=== PATIENT | male | born 1955 | race Caucasian/White ===

== ENCOUNTER 2021-11-03 13:43 | Observation (INO) | payer MEDICARE, MEDICAID, SELFPAY ==
--- NOTE | 2021-11-03 | ECG_ITS ---
APPROVED REPORT Exam: Resting ECG HR:57 bpm ECG Measurements Heart Rate 57 AXES WV 158 P 53 QRSd 95 QRS -21 QT 370 T 47 QTc 363 Conclusion SINUS BRADYCARDIA BORDERLINE LEFT AXIS DEVIATION [QRS AXIS < -20] BORDERLINE ECG UNCONFIRMED REPORT Electronically signed by : Robb Alexandra MD 11/07/2021 16:12:30
[2021-11-03 13:48] VITALS: PULSE 52; O2SAT 98; BMI 28.8
--- NOTE | 2021-11-03 14:36 | XR_ITS ---
FINAL REPORT CLINICAL HISTORY: chest pain, covid, smoker FINDINGS: Two views of the chest were obtained. The heart size and pulmonary vascularity are within normal limits. The mediastinum is normal. There is mild scarring in the lung bases. There is no active disease. There is no pneumothorax. There is a chronic mild right clavicular fracture. IMPRESSION: No active cardiopulmonary disease. Reviewed, Interpreted and Dictated by Erik Flores III, MD Transcribed by Tamie So Authenticated by Erik Flores III, MD on 11/03/2021 04:39:03 PM [facility]
--- NOTE | 2021-11-03 14:45 | HMH.CNCARD ---
History of Present Illness Consult date: 11/03/21 Requesting physician: Von Bateman Chief complaint: palpitations and left arm numbness History of present illness: This is a 66-year-old white gentleman who presented to the emergency department at [facility] with complaints of left arm numbness and palpitations. The patient states that he woke up this morning and his entire left arm was numb. He states then his heart started racing. He states that when his heart started racing he became significantly short of breath. He denies any chest pain or pressure. He states that the left arm numbness and palpitations were also associated with nausea and diaphoresis. He states that he felt like his heart rate was high and he did not feel well so he went to the emergency department. The patient was found to be in atrial fibrillation with RVR. He was started on a diltiazem drip. During transport from [facility] here at [facility], the patient converted to sinus rhythm with a heart rate in the 50s. His diltiazem drip has been stopped. He remains in sinus rhythm at this time. He is still denying any chest pain or pressure. He is still complaining of some left arm numbness. The patient does report a history of coronary artery disease status post stenting. He follows with Dr. Colmenares on a regular basis. And he is currently on Plavix and aspirin. He is a very poor historian and is unable to give me much more of his past medical history other than he has coronary disease, hypertension, hyperlipidemia and is diabetic. He does report having a history of stroke as well and an [place] in the past. [facility] History I have reviewed the patient's past medical history: Yes Medical History: Reports:: Atherosclerotic Heart Disease, Coronary Artery Disease, Cerebrovascular Accident, Diabetes Mellitus Type 2, Hyperlipidemia, Hypertension, Myocardial Infarction *Have you ever received a pneumonia vaccine?: No *Have you received a flu vaccine this season?: No Other Surgeries: Yes: Cardiac Catheterization, Coronary Stent - *Social History Last grade of school completed: 7th or 8th Smoking Status: Former smoker Tobacco Type: cigarettes Alcohol Intake: former *Occupational Status:: retired, disabled *Travel in the last 8 weeks: None Family Hx:: Cancer, Coronary Artery Disease, Diabetes, Heart Attack, Hypertension, Stroke Exam I & O for Last 24 hours: Intake & Output 10/31/21 11/01/21 11/02/21 11/03/21 23:59 23:59 23:59 23:59 Weight 189 lb 9.561 oz Narrative: EKG is sinus bradycardia - Constitutional no acute distress, average body habitus - *Routine HEENT Exam Head: Present: normocephalic, atraumatic Eye: Present: EOMI, PERRL ENT: Present: mucous membranes moist - *Routine Neck Exam Present: supple, full ROM, normal carotid upstroke. Absent: JVD, carotid bruit, lymphadenopathy - *Routine Respiratory Exam Present: CTA bilaterally - *Routine Cardiovascular Exam Present: RRR, Normal S1, Normal S2. Absent: murmur - *Routine Abdominal Exam Present: soft, normoactive bowel sounds. Absent: tenderness, distended - *Routine Extremities Exam Present: full ROM, pulses intact, normal capillary refill. Absent: cyanosis, clubbing, edema - *Routine Skin Exam Present: intact, warm. Absent: erythema, rash - *Routine Neurological Exam Present: alert, oriented X3, CN II-XII intact. Absent: sensory deficit, motor deficit - Routine Psychiatric Exam Present: normal affect, normal thought process Review of Systems - Review of Systems Review of systems:: pertinent systems reviewed and negative unless documented below - Constitutional Reports lack of energy - *Cardiovascular Reports shortness of breath, Reports shortness of breath with activity, Reports rapid, pounding, or irregular heartbeat, Reports fast heart rate, Denies chest pain - *Respiratory Reports shortness of breath, Reports shortness of breath
--- NOTE | 2021-11-03 14:56 | CA_ITS ---
APPROVED REPORT EXAM: Comprehensive 2D, Doppler, and color-flow Echocardiogram Truss Maker: Jennifer Bustamante RT(R) Ht: 5 ft 8 in Wt: 193lbs BSA: 2.01 BP: 147/86 mmHg Indications: AFIB with RVR, CAD, ex smoker, DM, HTN, hyperlipidemia, patient converted to normal sinus rhythm. 2D Dimensions LVOT 2.00 cm (M/F) 1.5-2.5 M-Mode Dimensions RVDd 2.32 cm (0.9-2.6) LA Diam 3.47 cm (1.9-4.0) LVDd 4.71 cm (3.5-5.7) Ao Diam 3.32 cm (2.0-3.7) LVDs 3.34 cm (3.5-5.7) IVSd 0.65 cm (0.6-1.1) PWd 0.76 cm (0.6-1.1) EF (Teich) 55.90% FS 29.10% EDV (Teich) 102.90 mL ESV (Teich) 45.40 mL LV Diastology E Decel Time 203.00 (160-240 msec) E/A Ratio 1.14 MED E' 13.20 (< 7 cm/sec) E'/MED E' Ratio 5.85 (>14) LAT E' 11.90 (<10 cm/sec) E/LAT E' Ratio 6.49 (>14) Aortic Valve LVOT Max 122.00 (70-110 cm/s) LVOT VTI 24.34 cm AoV Peak Alfonso. 189.00 (50-130 cm/s) AO Peak GR. 14.30 mmHg AO Mean GR. 7.00 (<5 mmHg) AO VTI 34.00 (18-25 cm) LEANNA (VTI) 2.25 (2.5-4.5 cm2) Mitral Valve MV E Max Alfonso. 77.00 (40-130 cm/s) MV A Velocity 68.00 (40-130 cm/s) E/A Ratio 1.14 MV Decel. Time 203.00 (160-240 ms) MV PHT 60.00 ms Left Ventricle Left atrium is mildly enlarged, left ventricle is normal size, mild concentric left ventricular hypertrophy, visually estimated ejection fraction 55% with no regional wall motion abnormality, diastolic parameters are inconclusive. Right Ventricle Right atrium and right ventricle are normal size and contractility. Aortic Valve Aortic valve is minimally thickened and fibrosed, there is no aortic stenosis or aortic insufficiency. Mitral Valve Mitral valve is grossly normal, there is trace mitral regurgitation. Tricuspid Valve Tricuspid grossly normal, there is trace tricuspid regurgitation, tricuspid regurgitation jet velocity is inadequate for calculation of the right ventricular systolic pressure. Pulmonic Valve Pulmonic valve is poorly visualized. Great Vessels Aortic root is normal size. Inferior vena cava is poorly visualized. Pericardium No significant pericardial effusion. Conclusion 1. Mildly enlarged left atrium, normal left ventricular size, mild concentric left ventricular hypertrophy, visually estimated ejection fraction 55% with no regional wall motion abnormality, diastolic parameters are inconclusive. 2. Thickened and calcified aortic valve without aortic stenosis or aortic insufficiency. 3. Trace mitral and tricuspid regurgitation. 4. No significant pericardial effusion noted. 5. Inferior vena cava is poorly visualized. Electronically signed by : Kvng Hanley MD 11/03/2021 19:22:40
--- NOTE | 2021-11-03 15:15 | HMH.PHAVTE ---
[facility] Pharmacy VTE Monitoring - Patient Demographics Admission date: 11/03/21 Report Date: 11/03/21 Time: 15:15 Allergies/Adverse Reactions: Patient Allergies lisinopril Adverse Reaction (Verified 11/03/21 15:00) Cough Height: 1.73 m Weight: 86 kg Patient Problems: Current Active Problems Atrial fibrillation with RVR (Acute) CAD (coronary artery disease) (Chronic) Left arm numbness (Acute) HTN (hypertension) (Chronic) HLD (hyperlipidemia) (Chronic) Diabetes mellitus (Chronic) - Prophylaxis VTE Prophylaxis Ordered?: Yes Types of VTE Prophylaxis: TEDS Knee High, Pharmacological Location of Applied Device: Bilateral Lower Extremeties Pharmacologic Type: Other (XARELTO)
--- NOTE | 2021-11-03 15:35 | PC.NURSE ---
[id number] Called Kevin Parada and asked for orders for DA pt. notified pt in [place] [facility] 1355 Called Christina Dorado and asked for orders for DA pt. notified in [place] sinus. EKG obtained r/t pt hr being in the low 50's drip stopped whil awaiting orders.
[2021-11-03 15:45] LABS: Basophils # 0.1 K/mm3 (0-0.2); Basophils % 0.9 % (0.1-2.0); Eosinophils # 0.2 K/mm3 (0.0-0.4); Eosinophils % 2.3 % (0.1-12.0); Hematocrit 44.9 % (42.0-52.0); Hemoglobin 14.4 g/dL (14.1-18.0); Lymphocytes # 2.7 K/mm3 (0.7-4.5); Lymphocytes % 31.9 % (10-50); Mean Corpuscular HGB Conc 32.1 g/dL (31.8-35.4); Mean Corpuscular Hemoglobin 31.9 pg (27.0-31.2); Mean Corpuscular Volume 99.4 fl (80-94); Mean Platelet Volume 10.5 fl (7.4-10.4); Monocytes # 0.6 K/mm3 (0.1-1.0); Monocytes % 7.7 % (1.7-9.3); Neutrophils # 4.8 K/mm3 (1.8-7.8); Neutrophils % 57.2 % (37.0-80.0); Platelet Count 231 K/mm3 (142-424); Red Blood Count 4.52 M/mm3 (4.60-6.20); Red Cell Distribution Width 14.7 % (11.5-17.5); White Blood Count 8.4 K/mm3 (4.8-10.8)
[2021-11-03 15:55] LABS: Creatine Kinase 63 U/L (55-170)
[2021-11-03 16:00] VITALS: BP 151/63; PULSE 57; PULSE 62; RESP 22; TEMP 37; O2SAT 98
[2021-11-03 16:05] LABS: CKMB Relative Index 1.6 U/L (0-4.0)
[2021-11-03 16:08] LABS: Influenza A, PCR Not Detected (NotDetected); Influenza B, PCR Not Detected (NotDetected)
[2021-11-03 16:10] LABS: Troponin I < 0.01 ng/ml (0.00-0.034)
[2021-11-03 16:38] LABS: Chol/HDL Ratio 4.3 (1-3.5); Cholesterol 134 mg/dl (140-200); HDL Cholesterol 31 mg/dl (40-60); Triglycerides 316 mg/dl (30-150); VLDL Cholesterol 63 mg/dL (0-40)
[2021-11-03 16:48] LABS: Direct LDL Cholesterol 71.95 mg/dL (100-129)
[2021-11-03 16:53] LABS: Coronavirus 19, PCR Detected (NotDetected)
--- NOTE | 2021-11-03 17:38 | PC.NURSE ---
Addendum entered by Karyna Montez RN 11/03/21 17:38: ok to transfer out of stepdown per A black Original Note: [id number]
[2021-11-03 17:58] LABS: Alanine Aminotransferase 39 U/L (12-78); Albumin Level 4.4 g/dl (3.5-5.0); Albumin/Globulin Ratio 1.4 (1.1-1.8); Alkaline Phosphatase 64 U/L (38-126); Anion Gap 17.3 mEq/L (5-15); Aspartate Amino Transferase 54 U/L (17-59); Bilirubin,Total 0.6 mg/dl (0.2-1.3); Blood Urea Nitrogen 24 mg/dl (9-20); Calcium 9.6 mg/dl (8.4-10.2); Carbon Dioxide 23 mmol/L (22.0-30.0); Chloride 107 mmol/L (98-107); Creatinine Clearance Estimated 86 mL/min (50-200); Estimated Glomerular Filt Rate 84 ml/min (>60); GFR (African American) 102 ML/MIN (>60); Globulin 3.1 g/dL (1.3-3.2); Glucose 148 mg/dl (74-100); Potassium 4.3 mmoL/L (3.5-5.1); Sodium 143 mmol/L (136-145); Total Protein,Serum 7.5 g/dl (6.3-8.2)
[2021-11-03 18:40] LABS: Troponin I < 0.01 ng/ml (0.00-0.034)
[2021-11-03 20:00] VITALS: BP 149/76; PULSE 60; RESP 19; TEMP 36.6; O2SAT 98
--- NOTE | 2021-11-03 20:18 | HMH.HP ---
*Admission Date: 11/03/21 *Chief complaint: fast hr *History of present illness: this patient was seen at [facility] and discussed with dr lombardi and transferred for eval and treatment as pt had new onset of a fib with rapid vent response - 66-year-old white gentleman who presented to the emergency department at [facility] with complaints of left arm numbness and palpitations. The patient states that he woke up this morning and his entire left arm was numb. He states then his heart started racing. He states that when his heart started racing he became significantly short of breath. He denies any chest pain or pressure. He states that the left arm numbness and palpitations were also associated with nausea and diaphoresis. He states that he felt like his heart rate was high and he did not feel well so he went to the emergency department. The patient was found to be in atrial fibrillation with RVR. He was started on a diltiazem drip. During transport from [facility] here at [facility], the patient converted to sinus rhythm with a heart rate in the 50s. His diltiazem drip has been stopped. He remains in sinus rhythm at this time. He is still denying any chest pain or pressure. He is still complaining of some left arm numbness. The patient does report a history of coronary artery disease status post stenting. He follows with Dr. Colmenares on a regular basis. And he is currently on Plavix and aspirin. He is a very poor historian and is unable to give me much more of his past medical history other than he has coronary disease, hypertension, hyperlipidemia and is diabetic. He does report having a history of stroke as well and an [place] in the past. pt admitted for eval and treatment [facility] History I have reviewed the patient's past medical history: Yes Medical History: Reports:: Atherosclerotic Heart Disease, Coronary Artery Disease, Cerebrovascular Accident, Diabetes Mellitus Type 1, Diabetes Mellitus Type 2, Hyperlipidemia, Hypertension, Myocardial Infarction *Have you ever received a pneumonia vaccine?: No *Have you received a flu vaccine this season?: No Other Surgeries: Yes: Cardiac Catheterization, Coronary Stent - *Social History Last grade of school completed: 7th or 8th Smoking Status: Former smoker Tobacco Type: cigarettes Smoking End Date: 1989 Alcohol Intake: former *Occupational Status:: retired, disabled *Travel in the last 8 weeks: None Family Hx:: Cancer, Coronary Artery Disease, Diabetes, Heart Attack, Hypertension, Stroke Review of Systems - Review of Systems Review of systems:: pertinent systems reviewed and negative unless documented below - Constitutional Denies fatigue - Eyes Denies blurry vision - ENT Denies dizziness - *Cardiovascular Reports chest pain, Reports rapid, pounding, or irregular heartbeat - *Respiratory Reports shortness of breath, Denies cough - *Gastrointestinal Denies abdominal pain - *Genitourinary Denies blood in urine - *Musculoskeletal Denies joint pain, Denies joint swelling - Integumentary/Breasts Denies rash - *Neurologic Reports numbness (left arm), Denies dizziness, Denies seizure-like activity - Psychiatric Denies anxiety Meds Home Medications Medication Instructions Recorded Confirmed Type Clopidogrel Bisulfate [Clopidogrel 75 mg PO DAILY 11/04/21 11/04/21 History 75mg Tab] Diclofenac Sodium [Diclofenac 75mg 75 mg PO BID 11/04/21 11/04/21 History Tab] Doxepin HCl [Sinequin 50mg capsule] 50 mg PO HS 11/04/21 11/04/21 History Dutasteride 0.5 mg PO DAILY 11/04/21 11/04/21 History Ergocalciferol (Vitamin D2) 50,000 units PO WEEKLY 11/04/21 11/04/21 History [Drisdol 50,000 units (1.25mg) capsule] Fenofibrate Nanocrystallized 145 mg PO DAILY 11/04/21 11/04/21 History [Fenofibrate] Fluticasone/Vilanterol [Breo 1 inh INHALATION DAILY 11/04/21 11/04/21 History Ellipta 100-25 Mcg INH] Gl
[2021-11-03 21:41] LABS: Troponin I < 0.01 ng/ml (0.00-0.034)
[2021-11-04] VITALS: BP 128/58; PULSE 60; PULSE 82; RESP 20; TEMP 36.6; O2SAT 96
[2021-11-04 04:00] VITALS: PULSE 110; PULSE 60
[2021-11-04 06:58] LABS: Anion Gap 12.6 mEq/L (5-15); Blood Urea Nitrogen 19 mg/dl (9-20); Carbon Dioxide 30 mmol/L (22.0-30.0); Chloride 105 mmol/L (98-107); Creatinine Clearance Estimated 86 mL/min (50-200); Estimated Glomerular Filt Rate 84 ml/min (>60); GFR (African American) 102 ML/MIN (>60); Glucose 120 mg/dl (74-100); Potassium 3.6 mmoL/L (3.5-5.1); Sodium 144 mmol/L (136-145)
[2021-11-04 08:00] VITALS: BP 134/54; PULSE 64; PULSE 80; RESP 17; TEMP 36.8; O2SAT 96
--- NOTE | 2021-11-04 09:38 | HMH.PHAINT ---
HOME MEDICATION LIST VERIFIED USING LIST FROM [facility]
--- NOTE | 2021-11-04 09:40 | NM_ITS ---
APPROVED REPORT Exam: Nuclear Stress Test Indication: Chest pain, CAD, HTN, DM, High cholesterol, Afib, Covid positive Patient Location: Inpatient Stress Tech: Ramona Guerra IN Tech:Beverly Pradhan, ARRT, RT (R)(N) Ht: 5 ft 8 in Wt: 189 lbs HR: 64 bpm BP: 148/70 mmHg BSA: 1.99 m2 BMI: 28.7 History: Chest pain, CAD, HTN, DM, High cholesterol, Afib, Covid positive Procedure: Patient received a 0.4 mg of intravenous Lexiscan, resting heart rate 64 bpm, resting blood pressure 148/70 mmHg, with Lexiscan maximum heart rate achived was 80 bpm which is Less than 85 % of the maximum predicted heart rate and blood pressure was 148/70 mmHg. With Lexiscan, patient denied any complaint of chest pain. Electrocardiogram Resting electrocardiogram shows sinus rhythm, with Lexiscan there is less than 1.[address] segment depression noted from the baseline EKG. The EKG portion of the Lexiscan is nondiagnostic. Cardiac Stress and Resting SPECT Images: Cardiac Stress and Resting SPECT images were obtained using technetium 99m Myoview 28.4 mCi stress and 9.43 mCi at rest. Gated SPECT for analysis of segmental wall motion and calculation of the ejection fraction also done. Cardiac stress and rest SPECT images show uniform myocardial activity without segmental perfusion abnormality, compared to ejection fraction of 56% with no regional wall motion abnormality, right ventricle is mildly enlarged with normal contractility. There is transient ischemic dilatation of the left ventricle seen which is likely inaccurate. Conclusion: 1. The EKG portion of the Lexiscan is nondiagnostic. 2. No scintigraphic evidence of reversible ischemia seen, compared right ejection fraction is 56% with no regional wall motion abnormality, right ventricle is mildly enlarged with normal contractility. There is transient ischemic dilatation of the left ventricle seen which is likely inaccurate. 3. Clinical correlation is recommended. Electronically signed by : Kvng Hanley MD 11/04/2021 19:36:10
--- NOTE | 2021-11-04 10:44 | PC.NURSE ---
Pt went down for stress test
--- NOTE | 2021-11-04 11:08 | HMH.PNCARD ---
Subjective Date: 11/04/21 Time: 13:00 Principal diagnosis: afib with RVR Interval history: This is a 66-year-old white gentleman who presented to the emergency department at [facility] with complaints of left arm numbness and palpitations. The patient was found to be in atrial fibrillation with RVR. He was then transferred here to [facility] for treatment of his atrial fibrillation with RVR. In route here to [facility] the patient converted to sinus rhythm on a diltiazem drip. He has remained in sinus rhythm since that time. He is currently on oral diltiazem and tolerating this well. He denies any chest pain or pressure. He denies any shortness of breath or edema. He denies any fever, chills, nausea, vomiting, diarrhea, PND or orthopnea. Exam Vital signs and Labs for Last 24 Hours: Temp Pulse Resp BP Pulse Ox 98.3 F 64 17 134/54 L 96 11/04/21 08:00 11/04/21 08:00 11/04/21 08:00 11/04/21 08:00 11/04/21 08:00 Laboratory Results - last 24 hr 11/03/21 14:59: WBC 8.4, RBC 4.52 L, Hgb 14.4, Hct 44.9, MCV 99.4 H, MCH 31.9 H, MCHC 32.1, RDW 14.7, Plt Count 231, MPV 10.5 H, Neut % (Auto) 57.2, Lymph % (Auto) 31.9, Collin % (Auto) 7.7, Eos % (Auto) 2.3, Baso % (Auto) 0.9, Neut # (Auto) 4.8, Lymph # (Auto) 2.7, Collin # (Auto) 0.6, Eos # (Auto) 0.2, Baso # (Auto) 0.1 11/03/21 14:59: Sodium 143, Potassium 4.3, Chloride 107, Carbon Dioxide 23, Anion Gap 17.3 H, BUN 24 H, Creatinine 0.90, Estimated Creat Clear 86, Estimated GFR 84, Est GFR ( Amer) 102, Glucose 148 H, Calcium 9.6, Total Bilirubin 0.6, AST 54, ALT 39, Alkaline Phosphatase 64, Total Protein 7.5, Albumin 4.4, Globulin 3.1, Albumin/Globulin Ratio 1.4 11/03/21 14:59: Triglycerides 316 H, Cholesterol 134 L, LDL Cholesterol Direct 71.95 L, VLDL Cholesterol 63 H, HDL Cholesterol 31 L, Cholesterol/HDL Ratio 4.3 H 11/03/21 14:59: Total Creatine Kinase 63, CK-MB (CK-2) 1.0, CK-MB (CK-2) Rel Index 1.6, Troponin I < 0.01 11/03/21 15:28: SARS-CoV-2 (PCR) Detected A, Influenza A Untype (PCR) Not detected, Influenza Type B (PCR) Not detected 11/03/21 18:00: Troponin I < 0.01 11/03/21 21:05: Troponin I < 0.01 11/04/21 05:28: Sodium 144, Potassium 3.6, Chloride 105, Carbon Dioxide 30, Anion Gap 12.6, BUN 19, Creatinine 0.90, Estimated Creat Clear 86, Estimated GFR 84, Est GFR ( Amer) 102, Glucose 120 H, Calcium 9.0 I & O for Last 24 hours: Intake & Output 11/01/21 11/02/21 11/03/21 11/04/21 23:59 23:59 23:59 23:59 Intake Total 360 / 360 360 / 360 Balance 360 / 360 360 / 360 Weight 189 lb 9.561 oz Narrative: Echo shows: 1. Mildly enlarged left atrium, normal left ventricular size, mild concentric left ventricular hypertrophy, visually estimated ejection fraction 55% with no regional wall motion abnormality, diastolic parameters are inconclusive. 2. Thickened and calcified aortic valve without aortic stenosis or aortic insufficiency. 3. Trace mitral and tricuspid regurgitation. 4. No significant pericardial effusion noted. 5. Inferior vena cava is poorly visualized. Lexiscan Myoview stress test shows: No evidence of reversible ischemia. - Constitutional no acute distress, average body habitus - *Routine HEENT Exam Head: Present: normocephalic, atraumatic Eye: Present: EOMI, PERRL ENT: Present: mucous membranes moist - *Routine Neck Exam Present: supple, full ROM, normal carotid upstroke. Absent: JVD, carotid bruit, lymphadenopathy - *Routine Respiratory Exam Present: CTA bilaterally - *Routine Cardiovascular Exam Present: RRR, Normal S1, Normal S2. Absent: murmur - *Routine Abdominal Exam Present: soft, normoactive bowel sounds. Absent: tenderness, distended - *Routine Extremities Exam Present: full ROM, pulses intact, normal capillary refill. Absent: cyanosis, clubbing, edema - *Routine Skin Exam Present: intact, warm. Absent: erythema, rash - *Routine Neurological Exam Present: a
[2021-11-04 11:27] VITALS: BMI 28.7
--- NOTE | 2021-11-04 11:42 | CA_ITS ---
APPROVED REPORT Exam: Pharmacologic Technologist: Ramona Barajas, Ht: 5 ft 8 in Wt: 189 lbs BSA: 1.99 m2 HR: 63 bpm BP: 148/70 mmHg Medical History Medications: Aspirin,,,,, XaRELTO,,,,, Plavix,,,,, CardIZEM,,,,, Stress Test Details Test: LEXISCAN HR Resting HR: 64 bpm Max Heart Rate (APMHR): 152.451440 bpm Max HR Achieved: 80 bpm Target HR (85% APMHR): 129.503127 bpm % of APMHR: 52.63 Recovery HR: 62 bpm BP Resting BP: 148/70 mmHg Max BP: 148/70 mmHg Recovery BP: 120.0/66.0 mmHg ECG Resting ECG: NSR, PVC, Left posterior fasicular block, ST-T abns inferiorly Clinical Exercise duration: 04:00 min Highest Stage Achieved: Exercise capacity: 1.0 METs Stress ECG Conclusion Symptoms: None Arrhythmias/Ectopy: None ST-T Changes: Exaggeration of baseline abns in inferior leads. Conclusion: Unremarkable Lexiscan stress. Myoview images reported separately. Test Summary REST . . . . . . . Resting REST 01:47 . . 64 . 148/ 70 . . Stage 1 01:00 . . 68 . . . . Stage 2 01:00 . . 78 . 144/ 63 . . Stage 3 01:00 . . 71 . . . . Stage 4 01:00 . . 68 . 123/ 67 . Stop exercise at 04:00 RECOVERY 01:00 . . 65 . 131/ 66 . . RECOVERY 02:00 . . 64 . 121/ 65 . . RECOVERY 03:00 . . 62 . 120/ 66 . . RECOVERY 03:16 . . 61 . 120/ 66 . . Electronically signed by : Kvng Hanley MD 11/04/2021 19:25:27
[2021-11-04 12:00] VITALS: BP 121/73; PULSE 55; RESP 16; TEMP 36.7; O2SAT 97
[2021-11-04 12:13] VITALS: PULSE 60
--- NOTE | 2021-11-04 12:33 | PC.NURSE ---
Spoke with RAD they stated that it was fine for pt to eat. I called dietary to request a cardiac tray.
--- NOTE | 2021-11-04 14:01 | HMH.DCSUM ---
General - General Admission date:: 11/03/21 Discharge date: 11/04/21 HPI HPI: this patient was seen at [facility] and discussed with dr lombardi and transferred for eval and treatment as pt had new onset of a fib with rapid vent response - 66-year-old white gentleman who presented to the emergency department at [facility] with complaints of left arm numbness and palpitations. The patient states that he woke up this morning and his entire left arm was numb. He states then his heart started racing. He states that when his heart started racing he became significantly short of breath. He denies any chest pain or pressure. He states that the left arm numbness and palpitations were also associated with nausea and diaphoresis. He states that he felt like his heart rate was high and he did not feel well so he went to the emergency department. The patient was found to be in atrial fibrillation with RVR. He was started on a diltiazem drip. [facility], the patient converted to sinus rhythm with a heart rate in the 50s. His diltiazem drip has been stopped. He remains in sinus rhythm at this time. He is still denying any chest pain or pressure. He is still complaining of some left arm numbness. The patient does report a history of coronary artery disease status post stenting. He follows with Dr. Colmenares on a regular basis. And he is currently on Plavix and aspirin. He is a very poor historian and is unable to give me much more of his past medical history other than he has coronary disease, hypertension, hyperlipidemia and is diabetic. He does report having a history of stroke as well and an [place] in the past. pt admitted for eval and treatment Hospital Course Hospital Course: 66-year-old white gentleman who presented to the emergency department at [facility] with complaints of left arm numbness and palpitations. The patient states that he woke up this morning and his entire left arm was numb. He states then his heart started racing. He states that when his heart started racing he became significantly short of breath. He denies any chest pain or pressure. He states that the left arm numbness and palpitations were also associated with nausea and diaphoresis. He states that he felt like his heart rate was high and he did not feel well so he went to the emergency department. The patient was found to be in atrial fibrillation with RVR. He was started on a diltiazem drip. [facility], the patient converted to sinus rhythm with a heart rate in the 50s. His diltiazem drip has been stopped. He remains in sinus rhythm at this time. He is still denying any chest pain or pressure. He is still complaining of some left arm numbness 11/03/21 CXR: FINDINGS: Two views of the chest were obtained. The heart size and pulmonary vascularity are within normal limits. The mediastinum is normal. There is mild scarring in the lung bases. There is no active disease. There is no pneumothorax. There is a chronic mild right clavicular fracture. IMPRESSION: No active cardiopulmonary disease. Reviewed, Interpreted and Dictated by Erik Flores III, MD 11/03/21 ECHO: Conclusion 1. Mildly enlarged left atrium, normal left ventricular size, mild concentric left ventricular hypertrophy, visually estimated ejection fraction 55% with no regional wall motion abnormality, diastolic parameters are inconclusive. 2. Thickened and calcified aortic valve without aortic stenosis or aortic insufficiency. 3. Trace mitral and tricuspid regurgitation. 4. No significant pericardial effusion noted. 5. Inferior vena cava is poorly visualized. Electronically signed by : Kvng Hanley MD Cardiology has seen and recommends: Plan: 1. The patient was admitted to the hospital with at
--- NOTE | 2021-11-04 15:06 | PC.NURSE ---
Pt is calling ride to come get him. Pt's ride is going to call once they are here to get him.
--- NOTE | 2021-11-04 15:24 | HMH.PHAINT ---
Discharge counseling complete. Informed pt of new medications, purpose, how to take, and potential side effects. 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 Pt understood and had no questions or concerns
--- NOTE | 2021-11-05 11:25 | CARE MANAGER ---
Addendum entered by Britt Espinosa 11/05/21 13:28: [facility]: services will begin this week. Original Note: This patient case coordinator had follow-up phone interview post discharge with patient this AM regarding discharge appointments, medications, and any additional questions or concerns patient may have. Patient stated that he got several new medications and they are somewhat overwhelming to him, asked patient if he would be interested in some home health and he states that he would, order placed for home health for medication management and penitentiary eval. metal control worker will follow-up with patient regarding agency and when they plan to visit.
== END 2021-11-04 16:15 | disposition home or self-care (01) ==
PROVIDERS: Nurse Practitioner Family; Admitting Provider Emergency Medicine; PCP Family Medicine; Visit Provider Emergency Medicine
DX: I25.10 Atherosclerotic heart disease of native coronary artery without angina pectoris (principal); E11.9 Type 2 diabetes mellitus without complications; E78.5 Hyperlipidemia, unspecified; I10 Essential (primary) hypertension; I48.91 Unspecified atrial fibrillation; R20.0 Anesthesia of skin; Z79.02 Long term (current) use of antithrombotics/antiplatelets; Z79.899 Other long term (current) drug therapy; Z20.822 Contact with and (suspected) exposure to COVID-19
CPT/HCPCS: G0378; G0379; 36415; 71046; 78452; 80048; 80053; 80061; 82550; 82553; 84484; 85025; 93005; 93017; 93306; A9502; C9803; J2785; U0003; U0005

== ENCOUNTER 2021-11-26 09:31 | Emergency (ER) | payer MEDICARE, MEDICAID, SELFPAY ==
[2021-11-26 09:50] VITALS: PULSE 62; O2SAT 98; BMI 29.2
[2021-11-26 10:33] VITALS: BP 120/55; PULSE 54; RESP 16; TEMP 36.9; O2SAT 95; BMI 38.0
--- NOTE | 2021-11-26 11:17 | HMH.EDUTC ---
[facility] [place] Clinical Impression: Low back pain Qualifiers: Chronicity: unspecified Back pain laterality: left Sciatica presence: with sciatica Sciatica laterality: sciatica laterality unspecified Qualified Code(s): M54.42 - Lumbago with sciatica, left side Disposition: Home, Self-Care Condition on Discharge: Good Instructions: Low Back Pain, DI for Chronic Pain -- Adult, Methocarbamol Additional Instructions: You should not be taking Diclofenac with your other Blood thinner medications you need to speak with your Family Doctor and Biology Intern before taking anymore of this medication Return if needed Straight to ER If any life threatening symptoms Follow up with your Family Doctor if no improvement Prescriptions: methocarbamoL [Methocarbamol] 500 mg PO BID #10 tab Transmission Status: Received by [email or web address] #[id number] Referrals: Doni Villasenor [Primary Care Provider] - Time of Disposition: 11:43 Medical Decision Making - Farhat Inquiry Pt receiving controlled substance: No Farhat was queried for this patient: No Vital Signs: 11/26/21 09:50 11/26/21 10:33 11/26/21 11:49 Temperature 98.5 F 98.5 F Temperature Source Oral Pulse Rate 54 L Pulse Rate [Left Radial] 62 54 L Respiratory Rate 16 16 Blood Pressure 120/55 L Blood Pressure [Right Arm] 120/55 L Blood Pressure Mean [Right Arm] 76 02 Sat by Pulse Oximetry 98 95 Medical Decision Narrative: Recommended UA and xray and patient declined states that he didnt want it he didnt fall or anything Patient was educated on risks and recommendations ad still declined Upon examination of Med list noted patient was on xarelto, plavix and diclofenac discussed with patient and recommended holding diclofenac and discussing with his PCP and Biology Intern before taking again with above medications and patient verbalized understanding states that he wants something to hle with muscle pain again recommended xray and further testing and he declined [facility] HPI - General Stated complaint: left side pains Time Seen by Provider: 11/26/21 11:17 Mode of Arrival: Ambulatory Source of Information: Patient Limitations: No Limitations Description of Symptoms (Recalled from Triage Doc. by RN): pt c/o L sided lower back pain. pt states he feels pressure in his lower back. 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 left lower back area States that pain in lower back worse when he is walking or moving certain ways States that today he was coming in to get his nails trimmed so he came on down here to get it looked at - Related Data Home Medications Medication Instructions Recorded Confirmed Clopidogrel Bisulfate [Clopidogrel 75 mg PO DAILY 11/04/21 11/26/21 75mg Tab] Diclofenac Sodium [Diclofenac 75mg 75 mg PO BID 11/04/21 11/26/21 Tab] Doxepin HCl [Sinequin 50mg capsule] 50 mg PO HS 11/04/21 11/26/21 Dutasteride 0.5 mg PO DAILY 11/04/21 11/26/21 Ergocalciferol (Vitamin D2) 50,000 units PO WEEKLY 11/04/21 11/26/21 [Drisdol 50,000 units (1.25mg) capsule] Fenofibrate Nanocrystallized 145 mg PO DAILY 11/04/21 11/26/21 [Fenofibrate] Fluticasone/Vilanterol [Breo 1 inh INHALATION DAILY 11/04/21 11/26/21 Ellipta 100-25 Mcg INH] Glimepiride 4 mg PO DAILY 11/04/21 11/26/21 Levothyroxine Sodium 12.5 mcg PO DAILY 11/04/21 11/26/21 [Levothyroxine 25mcg (0.025mg) Tab] Magnesium Oxide 400 mg PO DAILY 11/04/21 11/26/21 Pantoprazole Sodium 20 mg PO DAILY 11/04/21 11/26/21 Ranolazine [Ranolazine ER] 1,000 mg PO BID 11/04/21 11/26/21 Simvastatin 40 mg PO DAILY 11/04/21 11/26/21 allopurinoL [Allopurinol 300mg 300 mg PO DAILY 03
[2021-11-26 11:49] VITALS: BP 120/55; PULSE 54; RESP 16; TEMP 36.9
== END 2021-11-26 11:51 | disposition home or self-care (01) ==
LOC: ER 09:51 → UTC 09:54
PROVIDERS: Emergency Provider Nurse Practitioner; PCP Family Medicine
DX: M54.42 Lumbago with sciatica, left side (principal); I25.10 Atherosclerotic heart disease of native coronary artery without angina pectoris; E11.9 Type 2 diabetes mellitus without complications; E78.5 Hyperlipidemia, unspecified; I10 Essential (primary) hypertension; Z79.899 Other long term (current) drug therapy
CPT/HCPCS: G0463; 99212

== ENCOUNTER → 2021-12-22 15:00 | Outpatient (CLI) | payer MEDICARE, MEDICAID, SELFPAY ==
--- NOTE | 2021-12-22 15:01 | US_ITS ---
FINAL REPORT CLINICAL HISTORY: SKIN COLOR CHANGES,DM,EX SMOKER,HTN,PVD,BILATERAL REST PAIN FINDINGS: ANKLE-BRACHIAL PRESSURE INDICES Pressure indices are as follows: RIGHT LOWER EXTREMITY: Ankle-brachial pressure index: 1.16 Comments: Normal LEFT LOWER EXTREMITY: Ankle-brachial pressure index: 1.15 Comments: Normal CONCLUSION: No evidence of significant obstructive peripheral vascular disease of the lower extremities Reviewed, Interpreted and Dictated by Erik Flores III, MD Transcribed by Carmel Caputo Authenticated by Erik Flores III, MD on 12/22/2021 04:24:05 PM [facility]
== END ==
PROVIDERS: PCP Family Medicine; Visit Provider Podiatrist
DX: I73.9 Peripheral vascular disease, unspecified
CPT/HCPCS: 93923

== ENCOUNTER 2023-09-28 12:05 | Outpatient (CLI) | payer MEDICARE, MEDICAID, SELFPAY | END 2023-09-28 23:59 | LOC: LAB.DROPOF 09-29 12:09 | PROVIDERS: PCP Nurse Practitioner; Visit Provider Nurse Practitioner | DX: L60.8 Other nail disorders; E11.40 Type 2 diabetes mellitus with diabetic neuropathy, unspecified; Z79.84 Long term (current) use of oral hypoglycemic drugs | CPT/HCPCS: 87102; 87206; 87220 ==

== ENCOUNTER 2025-03-28 11:47 | Outpatient (CLI) | payer MEDICARE, MEDICAID, SELFPAY ==
--- NOTE | 2025-03-28 11:50 | XR_ITS ---
FINAL REPORT CLINICAL HISTORY: arthritis pain in left foot FINDINGS: RIGHT FOOT 3 views of the right foot were obtained. There is no acute fracture or dislocation. Mild degenerative changes are seen diffusely. There are dense calcifications within the Achilles tendon which may be seen with chronic tear or calcific tendinitis. Visualized joint spaces are normally aligned. Soft tissues are unremarkable. IMPRESSION: No acute bony abnormality. Reviewed, Interpreted and Dictated by Luba Clinton MD Transcribed by Sheela Tellez Authenticated and [facility]
--- NOTE | 2025-03-28 11:50 | XR_ITS ---
FINAL REPORT CLINICAL HISTORY: arthritis pain in left foot FINDINGS: LEFT FOOT Three views of the left foot demonstrate no acute fracture or dislocation. There are moderate degenerative changes of the first MTP joint. Mild degenerative changes are seen elsewhere. Postoperative changes are noted of the ankle. The visualized joint spaces are normally aligned. The soft tissues are unremarkable. IMPRESSION: Degenerative changes without acute bony abnormality. Reviewed, Interpreted and Dictated by Luba Clinton MD Transcribed by Sheela Tellez Authenticated and . [facility]
--- OUTSIDE RECORDS SUMMARY | 2025-03-28 11:50 | XMS_ITS | Clinical Summary ---
Author Organization [facility] Address [address] [place] [address] Care Team Providers Care Oil Heaterman Name Role Phone Doni Villasenor MD Primary Care Provider [phone] Stephon Hernandez Unavailable [phone] Allergies Active Allergy Reactions Criticality Noted Date Comments Lisinopril Cough,Rash Low 07/20/2022 cough Metformin Rash Low 05/18/2023 Nsaids Other - please docum ent in the comment field Low 11/14/2024 Heart doctor must OK this Medications albuterol 108 (90 Base) MCG/ACT inhaler Inhale 1 puff. 02/19/20 23 Active allopurinol (Zyloprim) 300 MG tablet Take 1 tablet (300 mg) by mouth 1 (one) time each day. 06/29/20 18 Active atorvastatin (Lipitor) 20 MG tablet Take 1 tablet (20 mg) by mouth 1 (one) time each day. 04/06/20 23 Active dutasteride (Avodart) 0.5 MG capsule Take 1 capsule (0.5 mg) by mouth 1 (one) time each day. 06/29/20 18 Active ergocalciferol (Vitamin D-2) 1.25 MG (11712 UT) capsule every 7 (seven) days. 06/04/20 22 Active fenofibrate (Tricor) 145 MG tablet Take 1 tablet (145 mg) by mouth 1 (one) time each day. 10/11/19 18 Active Breo Ellipta 100-25 MCG/ACT aerosol powder INHALE ONE PUFF BY MOUTH ONCE A DAY 03/26/20 23 Active furosemide (Lasix) 20 MG tablet Take 1 tablet (20 mg) by mouth. 12/01/19 23 Active glimepiride (Amaryl) 4 MG tablet Take 1 tablet (4 mg) by mouth 1 (one) time each day. 04/12/20 23 Active ipratropium (Atrovent) 0.06 % nasal spray USE 2 SPRAYS IN EACH NOSTRIL THREE TIMES DAILY 01/02/20 23 Active ipratropium (Atrovent HFA) 17 MCG/ACT inhaler Inhale 2 puffs every 4 (four) hours if needed. 02/19/20 23 Active ipratropium-albu terol (Duo-Neb) 0.5-2.5 mg/3 mL nebulizer solution Inhale 3 mL. 02/11/20 23 Active levothyroxine (Synthroid, Levoxyl) 25 MCG tablet Take 0.5 tablets (12.5 mcg) by mouth 1 (one) time each day. 07/05/20 22 Active magnesium oxide (Mag-Ox) 400 MG tablet Take 1 tablet (400 mg) by mouth 1 (one) time each day. 12/01/19 23 Active metoprolol tartrate (Lopressor) 50 MG tablet Take 2 tablets (100 mg) by mouth 2 (two) times a day. Takes 100 mg twice daily 05/02/20 23 Active nitroglycerin (Nitrostat) 0.[address] 1 tablet (0.4 mg) under the tongue. 09/28/19 19 Active tiZANidine (Zanaflex) 4 MG tablet TAKE 1 TABLET BY MOUTH 3 TIME A DAY 11/12/19 23 Active sotalol (Betapace) 120 MG tablet Take 1 tablet (120 mg) by mouth. 04/24/20 23 Active Xarelto 20 MG tablet Take 1 tablet (20 mg) by mouth 1 (one) time each day. 05/02/20 23 Active ammonium lactate (Lac-Hydrin) 12 % lotion APPLY LOTION TOPICALLY TO AFFECTED AREA ONCE DAILY Active gabapentin (Neurontin) 800 MG tablet Take 1 tablet (800 mg) by mouth in the morning and 1 tablet (800 mg) in the evening and 1 tablet (800 mg) before bedtime. 11/08/19 25 Active Continuous Glucose School Services Officer (Apolo Energiacom G7 School Services Officer) device daily. as directed 04/13 24 Active Continuous Glucose Sensor (Dexcom G7 Sensor) [facility] change every 10 days as directed 10/27/19 25 Active Jardiance 25 MG Take 1 tablet (25 mg) by mouth daily. Active Trelegy Ellipta 200-62.5-25 MCG/ACT aerosol powder Inhale 1 puff 1 (one) time each day. 10/16/19 25 Active metoprolol succinate XL (Toprol-XL) 25 MG 24 hr tablet Take 1 tablet (25 mg) by mouth daily. 10/10/19 25 Active pantoprazole (Protonix) 40 MG EC tablet Take 1 tablet (40 mg) by mouth in the morning and 1 tablet (40 mg) before bedtime. 08/29/20 24 Active Wal-Mucil 0.52 g capsule Take 2 capsules (1.04 g) by mouth in the morning and 2 capsules (1.04 g) before bedtime. Active Ozempic, 1 MG/DOSE, 4 MG/3ML solution pen-injector inject 1 mg subcutaneously once a week 11/14/19 25 Active lamoTRIgine (LaMICtal) 25 MG tabletIndication s:SUNCT (short unilateral neuralgiform headache, conjunctival inj/tear) Take 1 tablet (25 mg) by mouth once daily for 2 weeks. Then, take 1 tablet (25 mg) by mouth twice daily for 2 weeks. Then, take 2 tablets (50 mg) in the morning and 1 tablet (25 mg) in the evening for 2 weeks. Then, take 1 tablet (50 mg) by mouth twice daily thereafter. 70 tablet 11/30/19 25 Active lamoTRIgine (LaMICtal) 25 MG tabletIndication s:SUNCT (short unilateral neuralgiform headache, conjunctival inj/tear) Take 2 tablets by mouth in the morning and 2 tablets before bedtime. 120 tablet 2 01/18/20 25 025 Active Active Problems Problem Noted Date Diagnosed Date SUNCT (short unilateral neur algiform headache, conjunctival inj/tear) 11/23/2024 Arthritis 05/18/2023 05/18/2023 Cancer 05/18/2023 05/18/2023 Stroke 05/18/2023 05/18/2023 Swelling of lower extremity 12/02/202205/07 Cervical radiculopathy 11/02/2022 Overview (05/18/2023): Last Assessment & Plan: Presumed this assessment based on symptoms. Dizziness 11/02/2022 05/18/2023 Overview (05/18/2023): Last Assessment & Plan: Orthostatic some. Also with episodes of neck discomfort. We will plan carotid and C-spine. Delayed emergence from anesthesia 07/23/2022 05/18/2023 Pacemaker 07/23/2022 05/18/2023 Overview (05/18/2023): Added automatically from request for surgery [id number] Last Assessment & Plan: Good battery life and lead function. Interrogation today performed by me in clinic Place February 2022 Stented coronary artery 07/23/2022 05/18/20 23 Chest pain 07/21/2022 05/18/2023 Pericardial effusion 07/21/2022 05/18/2023 Overview (05/18/2023): Added automatically from request for surgery [id number] Paroxysmal atrial fibrillation 07/20/2022 0 05/18/2023 Overview (05/18/2023): Last Assessment & Plan: Has done well other than acute flareup during pneumonia. Has a follow-up with Dr Reynaga in the future. Continue current regimen for now. I think the high heart rates gave him a little bit of fluid in his lungs so we will do a short course of Lasix. I told him to take it only for the next couple days in a row and then as needed after that. CAD (coronary artery disease) 05/14/2021 Overview (05/18/2023): Last Assessment & Plan: To moderate at recent heart cath. No indication for PCI. Primary prevention. HTN (hypertension) 05/14/2021 05/18/2023 Hyperlipidemia 05/14/2021 05/18/2023 Type 2 diabetes mellitus 05/14/2021 023 Episode of unresponsiveness 05/13/202105/07 Trimalleolar fracture 04/01/2018 05/18/2023 Acute pancreatitis 05/02/2015 05/18/2023 Acute posthemorrhagic anemia 05/02/201508/2023 Cholelithiasis 05/02/2015 05/18/2023 Chronic cholecystitis 05/02/2015 05/18/2023 Chronic obstructive pulmonary disease 05/02/2015 05/18/2023 Hypoalbuminemia 05/02/2015 05/18/2023 Hypocalcemia 05/02/2015 05/18/2023 Hypomagnesemia 05/02/2015 05/18/2023 Leukocytosis 05/02/2015 05/18/2023 Encounters Date Type Department Care Team Description 01/19/2025 Orders Only [facility] [address] [place] [address] Stephon Hernandez PA from Last 3 Months Immunizations Immunization Administration Dates Next Due Influenza, injectable, quadrivalent 05/08,07/09/2021,10/02/2020,05/19,04/28/2016 Influenza, seasonal, injectable 06/06/2015 Moderna COVID-19 Vaccine (Re d Cap) 12+ years 03/06/2022,07/09/2021,06/10/2021 Pneumococcal 20-belen Conj Vaccine 05/27/2022 Pneumococcal Polysaccharide PPV23 05/19/2017 Family History Medical History Relation Name Comments Heart disease Father Cancer Mother Mental illness Sister Relation Name Status Comments Father Mother Sister Social History Tobacco Use Types Packs/Day Years Used Date Smoking Tobacco: Former Cigarettes 2 39 1 963 - 2002 Smokeless Tobacco: Never Tobacco Cessation:Counseling Given: Not Answered Alcohol Use Standard Drinks/Week Comments Not Currently 0 (1 standard drink = 0.6 oz pur e alcohol) Sex and Gender Information Value Date Recorded Sex Assigned at Not on file Legal Sex Male 8:15 PM EDT Gender Identity Not on file Sexual Orientation Not on file Last Filed Vital Signs Vital Sign Reading Time Taken Comments Blood Pressure 100/62 11/22/2024 1:11 PM EDT Pulse 79 11/22/2024 1:11 PM EDT Temperature 36.7 C (98 F) 05/10/2024 1:37 PM EDT Respiratory Rate - - Oxygen Saturation 92% 11/22/2024 1:11 PM EDT Inhaled Oxygen Concentration - - Weight 83.5 kg (184 lb) 11/22/2024 1:11 PM EDT Height 170.2 cm (5' 7 ) 11/22/2024 1:11 PM EDT Body Mass Index 28.82 11/22/2024 1:11 PM EDT Plan of Treatment Health Maintenance Due Date Last Done Comments [facility]-Depression Screening 1953 [facility]-Hepatitis C Screening 1953 [facility]-Medicare Annual Wellness (AWV) 1955 [facility]-Infant/Child/Adol SDOH Screenings 1953 Diabetes: Dental Exam 1963 [facility]- SDOH Screenings 1971 [facility]-Adult SDOH Screenings 1971 [facility]-DTaP,Tdap,and Td Vaccines (1 - Tdap) 1972 [facility]-Hepatitis A Vaccines (1 of 2 - Risk 2-dose series) 1972 [facility]-Zoster Vaccines (1 of 2) 1972 CT Colonography 1998 Colonoscopy 1998 FIT-DNA 1998 FIT 1998 FOBT 1998 Sigmoidoscopy 1998 [facility]-Colorectal Cancer Screening 1998 [facility]-RSV Vaccine: 60+ Years or (1 - Risk 60-74 years 1-dose series) 2013 [facility]-Abdominal Aortic Aneurysm (AAA) Screening 2018 IZS-NIIRO-12 Vaccine ( season) 2024 03/06/2022, 07/09/2021, 06/10/2021 [facility]-Diabetes: Hemoglobin A1C 04/02/2025, 10/01/2022, 05/13/2021 [facility]-Influenza Vaccine (#1) 05/07/202505/27, 07/09/2021, 10/02/2020, Additional history exists [facility]-Pneumococcal Vaccine: 50+ Years Completed 05/27/2022, 05/19/2017 [facility]-Obesity Intervention Completed 11/22/2024, 11/04 HPV Vaccines Aged Out No longer eligi ble based on patient's age to complete this topic [facility]-HIB Vaccines Aged Out No longer e ligible based on patient's age to complete this topic [facility]-IPV Vaccines Aged Out No longer e ligible based on patient's age to complete this topic [facility]-Rotavirus Vaccines Aged Out No lo nger eligible based on patient's age to complete this topic Insurance [place] MEDICARE Care Teams Oil Heaterman Relationship Specialty Start Date End Date Doni Villasenor MD [address] [place] [address] PCP - General 05/18/23 Stephon Hernandez PA [address] [facility] [address] [place] [address] Physician Application Performance Engineer 11/22/24
--- OUTSIDE RECORDS SUMMARY | 2025-03-28 11:50 | XMS_ITS | Encounter Summary ---
Author Organization [facility] Address [address] [place] [address] Care Team Providers Care Strain Technician Name Role Phone oDni Villasenor MD Primary Care Provider [phone] Reason for Visit * Reason Comments Med Refill Encounter Details Date Type Department Care Team (Late st Contact Info) Description 03/19/2025 Refill [facility] [address] [phone] Karmen Khan [employer] [address] [address] Med Refill Social History Tobacco Use Types Packs/Day Years Used Date Smoking Tobacco: Former Cigarettes 1 40 1 962 - 2002 Passive Smoke Exposure: Past Smokeless Tobacco: Never Alcohol Use Standard Drinks/Week Comments Not Currently 0 (1 standard drink = 0.6 oz pur e alcohol) AUDIT-C Answer Date Recorded Q1: How often do you have a drink containing alcohol? Never 09/17/2023 Q2: How many drinks containi ng alcohol do you have on a typical day when you are drinking? Patient does not drink Q3: How often do you have si x or more drinks on one occasion? Never 09/17/2023 Abuse Screen Answer Date Recorded Feels Unsafe at Home or Work/School no 09/17/2023 Feels Threatened by Someone no 09/06 Does Anyone Try to Keep You From Having Contact with Others or Doing Things Outside Your Home? no 09/17/2023 Physical Signs of Abuse Present no 09/17/2023 Housing Stability Answer Date Recorded Current Living Arrangements home 09/06 Potentially Unsafe Housing Conditions Not on abelardo e 09/17/2023 Disabilities Answer Date Recorded Difficulty Concentrating, Remembering or Making Decisions no 09/17/2023 Difficulty Managing Errands Independently no 09/17/2023 Education Answer Date Recorded Help with school or training? Not on file Preferred Language Qatari 09/10/2023 Sex and Gender Information Value Date Recorded Sex Assigned at Not on file Legal Sex Male 10:52 AM EDT Gender Identity Not on file Sexual Orientation Not on file Occupation Industry Job Start Date Job End Date DISABLED Not on file Not on file Not on file documented as of this encounter Plan of Treatment Upcoming Encounters Date Type Department Care Team (Late st Contact Info) Description 04/04/2025 12:30 PM EDT Clinical Support No Requirements [facility] [address] [phone] 04/04/2025 12:45 PM EDT Office Visit [facility] [address] [phone] Marina Langley MD [address] [address] 04/16/2025 1:15 PM EDT Registration [facility] [address] [place] [phone] 04/16/2025 1:30 PM EDT Office Visit [facility] [address] [place] [address] [address] [place] [address] Gwen Benitez, [employer] [address] [place] [address] documented as of this encounter Visit Diagnoses Diagnosis Swelling of lower extremity Paroxysmal atrial fibrillation Atrial fibrillation documented in this encounter Care Teams Strain Technician Relationship Specialty Start Date End Date Doni Villasenor MD [address] [address] PCP - General Family Medicine 02/23/19 documented as of this encounter
--- OUTSIDE RECORDS SUMMARY | 2025-03-28 11:50 | XMS_ITS ---
Author Organization [facility] Address [address] [place] [id number] Care Team Providers Care Director Of Hospitality Name Role Phone Doni Villasenor MD Primary Care Provider [phone] Active Problems Problem Noted Date Diagnosed Date Complete heart block 01/02/2025 Hospital discharge follow-up 12/05/2024 Assessment & Plan (12/05/2024 3:12 PM EDT): Patient initially presented to [facility] on 11/29/2024 with possible stroke. He had difficulty speaking but any acute stroke was ruled out at that time. He was transferred to [facility] due to [facility] being on divert. [facility] records have been requested multiple times but are unavailable at this time. He reports that a stroke was ruled out there as well and he was told that he possibly has Alzheimer's disease. He completed an echocardiogram and carotid testing at [facility] but both are unavailable for review at this time. He denies any current symptoms today. We will review records from [facility] and determine if further testing is needed at that time. He completed a CTA of head and neck at [facility] on 11/29/2024 that revealed an unremarkable CTA neck and head. CT of brain revealed no acute disease. - He had a follow-up scheduled Dr. Langley on 11/30/2024 but had to cancel due to being hospitalized. We will have him return in 1 month for follow-up visit with Dr. Langley to reassess symptoms and determine if further testing is needed at that time. History of TIA (transient ischemic attack) 07/03 Personal history of smoking 10/14/2023 Chronic respiratory failure with hypoxia 024 Sinus node dysfunction 09/01/2023 Overview (09/01/2023): s/p DC PM 03/03/22 [facility] Stage III (Severe) COPD 08/31/2023 Arthritis 05/31/2023 Cancer 05/31/2023 Stroke 05/31/2023 Cervical radiculopathy 11/02/2022 Assessment & Plan (11/02/2022 7:22 PM EST): Presumed this assessment based on symptoms. Pacemaker 09/28/2022 Assessment & Plan (10/03/2024 9:17 AM EST): Good battery life and lead function. Assessment & Plan (11/03/2023 3:53 PM EST): Device interrogation today shows good battery life and lead function. Assessment & Plan (06/02/2023 8:31 AM EDT): Interrogation today shows good battery life and lead function. A-fib burden <1%. Assessment & Plan (12/02/2022 8:32 AM EDT): Good battery life and lead function. Interrogation today performed by me in clinic Assessment & Plan (11/02/2022 7:22 PM EST): Checked recently and Dr Reynaga's office. We will check at next appointment for A- fib burden History of Delayed emergence from anesthesia Current use of intermodal dispatcher anticoagulation 022 Paroxysmal atrial fibrillation 07/20/2022 Overview (09/20/2023): Catheter ablation of the atrioventricular (AV) node. 09-17-23 Assessment & Plan (11/03/2023 3:53 PM EST): Device interrogation shows A-fib burden of 36%. - Continue metoprolol and Xarelto at current doses. Assessment & Plan (06/02/2023 8:33 AM EDT): Patient reports occasional episodes of A-fib most usually at night. Device interrogation shows A-fib burden of <1%. - Continue metoprolol and Xarelto at current doses. Assessment & Plan (12/02/2022 8:33 AM EDT): Has done well other than acute flareup [...] row and then as needed after that. Assessment & Plan (11/02/2022 7:25 PM EST): Recent sotalol initiation. QTc okay on EKG today. Follow-up to reassess A-fib burden. Plan for symptomatic control. On rhythm control. Also on Xarelto. CAD (coronary artery disease) 05/14/2021 Overview (09/01/2023): 05/2019 [facility] with single-vessel borderline circumflex disease, 40% RCA. LAD angioplasty site patent. [facility], 10/01/2022: 60% OM1 with normal IFR 0.94, 50% first diagonal normal IFR 0.96. Otherwise no significant coronary disease Assessment & Plan (12/05/2024 3:14 PM EDT): 05/2019 [facility] with single-vessel borderline circumflex disease, 40% RCA. LAD angioplasty site patent. [facility], 10/01/2022: 60% OM1 with normal IFR 0.94, 50% first diagonal normal IFR 0.96. Otherwise no significant coronary disease -Continue current medical therapy Assessment & Plan (11/06/2024 5:59 PM EST): He has had recent angiography that I reviewed again today. Orders: Overnight Sleep Oximetry Study; Future Assessment & Plan (10/03/2024 9:17 AM EST): Doing well on medical therapy. No symptoms to suggest progression. Need to get LDL less than 70. Will update lab work. Orders: CBC & Differential; Future Comprehensive Metabolic Panel; Future TSH Rfx On Abnormal To Free T4; Future Vitamin B12 & Folate; Future Hemoglobin A1c; Future Lipid Panel; Future Assessment & Plan (11/02/2022 7:26 PM EST): To moderate at recent heart cath. No indication for PCI. Primary prevention. HTN (hypertension) 05/14/2021 Assessment & Plan (10/03/2024 9:17 AM EST): Well-controlled. Continue current medications. Orders: CBC & Differential; Future Comprehensive Metabolic Panel; Future TSH Rfx On Abnormal To Free T4; Future Vitamin B12 & Folate; Future Hemoglobin A1c; Future Lipid Panel; Future Assessment & Plan (11/03/2023 3:57 PM EST): Hypertension is stable . Continue current treatment regimen. Dietary sodium restriction. Blood pressure will be reassessed at the next regular appointment. Assessment & Plan (06/02/2023 8:31 AM EDT): Hypertension is stable . Continue current treatment regimen. Dietary sodium restriction. Blood pressure will be reassessed at the next regular appointment. Hyperlipidemia 05/14/2021 Assessment & Plan (10/03/2024 9:17 AM EST): As above. Continue atorvastatin 20 mg for now. May have to bump up based on lipid panel. Would like to have him on at least a moderate dose based on his coronary history. Will likely change to atorvastatin 40 mg based on labs. Orders: CBC & Differential; Future Comprehensive Metabolic Panel; Future TSH Rfx On Abnormal To Free T4; Future Vitamin B12 & Folate; Future Hemoglobin A1c; Future Lipid Panel; Future Type 2 diabetes mellitus 05/14/2021 Current Treatment and Therapy Plans No current plan information found. Past Treatment and Therapy Plans No past plan information found. Lifetime Dose Tracking * Chemical Lifetime Dose Automatic Entry Manual Entr y Cumulative Air Kerma 684 mGy 0 mGy 684 mGy Resolved Problems Problem Noted Date Diagnosed Date Resolved Date EDUARDO (dyspnea on exertion) 10/14/2023 Swelling of lower extremity 12/02/2022 08/31/2023 Dizziness 11/02/2022 12/16/2023 Assessment & Plan (11/03/2023 3:55 PM EST): Increase in dizziness and lightheadedness in the last several weeks. It started shortly after having either a GI viral illness or food poisoning. He has not had any recent medication changes. Carotid duplex from 02/10/2023 revealed <50% stenosis bilaterally. Echocardiogram was completed on 06/01/2023 that revealed an LVEF of 63%. Grade 1 diastolic dysfunction and moderately elevated RVSP (45-55 mmHg). - Possible dehydration/orthostasis - Increase fluid intake - Change positions slowly - Report if symptoms worsen before follow-up visit. Assessment & Plan (11/02/2022 7:22 PM EST): Orthostatic some. Also with episodes of neck discomfort. We will plan carotid and C-spine. Chest pain 07/21/2022 08/31/2023 Pericardial effusion 07/21/2022 023 nursing home current use of antiarrhythmic drug 12/20/2023 Assessment & Plan (12/02/2022 8:31 AM EDT): EKG updated for QT interval monitoring on new medication. QT is acceptable range. Assessment & Plan (11/02/2022 7:26 PM EST): Sotalol. QT okay today. Had previously been on amiodarone. Hyperkalemia 05/14/2021 05/14/2021 Elevated serum creatinine 05/14/2021 Hypoglycemia 05/14/2021 05/14/2021 Episode of unresponsiveness 05/13/2021 08/31/2023 Acute pancreatitis 05/02/2015 3 Acute posthemorrhagic anemia 05/02/2015 08/31/2023 Cholelithiasis 05/02/2015 07/03/2024 Acute cholecystitis 05/02/2015 08/31/20 23 Chronic cholecystitis 05/02/20152023 Hypoalbuminemia 05/02/2015 08/31/2023 Hypocalcemia 05/02/2015 08/31/2023 Hypomagnesemia 05/02/2015 08/31/2023 Leukocytosis 05/02/2015 08/31/2023
--- OUTSIDE RECORDS SUMMARY | 2025-03-28 11:50 | XMS_ITS | Encounter Summary ---
Author Organization [facility] Address [address] [place] [address] Care Team Providers Care Coke Oven Patcher Name Role Phone Doni Villasenor MD Primary Care Provider [phone] Reason for Visit * Reason Comments Med Refill Encounter Details Date Type Department Care Team (Late st Contact Info) Description 01/31/2025 Refill [facility] C[facility] [address] [place] [address] Marina Langley MD [address] [place] [address] Med Refill Social History Tobacco Use [...] or training? Not on file Preferred Language Northern Irish 09/10/2023 Sex and Gender Information Value Date [...] 12:30 PM EDT Clinical Support No Requirements [facility] [address] [place] [phone] 04/04/2025 12:45 PM EDT Office Visit [facility] [address] [place] [address] Marina Langley MD [address] [place] [address] 04/16/2025 1:15 PM EDT Registration [facility] PULMONARY & CRITICAL CARE MEDICINE [address] [place] [phone] 04/16/2025 1:30 PM EDT Office Visit [facility] PUL[facility] MEDICINE [address] [place] [phone] Gwen Benitez, TOBACCO CLASSER [address] [place] [address] documented as of this encounter Visit Diagnoses Diagnosis Swelling of lower extremity Paroxysmal atrial fibrillation Atrial fibrillation documented in this encounter Care Teams Coke Oven Patcher Relationship Specialty Start Date End Date Doni Villasenor MD [address] [place] [address] PCP - General Family Medicine 02/23/19 documented as of this encounter
--- OUTSIDE RECORDS SUMMARY | 2025-03-28 11:50 | XMS_ITS | Encounter Summary ---
Author Organization [facility] Address [address] [place] [id number] Care Team Providers Care Airfield Manager Name Role Phone Doni Villasenor MD Primary Care Provider [phone] Encounter Details Date Type Department Care Team (Late st Contact Info) Description 2025 Results Follow-Up [facility] CARDIOLOGY [address] [place] [address] Marina Langley MD [address] [place] [address] Social History Tobacco Use Types Packs/Day Years [...] or training? Not on file Preferred Language Swedish 09/10/2023 Sex and Gender Information Value Date Recorded Sex Assigned at Not on file Legal Sex Male 10:52 AM EDT Gender Identity Not on file Sexual Orientation Not on file Occupation Industry Job Start Date Job End Date DISABLED Not on file Not on file Not on file documented as of this encounter Progress Notes * Irena Allen RegSched Rep - 2025 12:56 PM EDT It was not ordered from our office. I have noticed [place] putting our providers name on tests thatwe did not order & sending us the results documented in this encounter Plan of Treatment Upcoming Encounters Date Type Department Care Team (Late st Contact Info) Description 04/04/2025 12:30 PM EDT Clinical Support No Requirements [facility] [address] [place] [address] 04/04/2025 12:45 PM EDT Office Visit [facility] [address] [place] [phone] Marina Langley MD [address] [place] [address] 04/16/2025 1:[address] [facility] PULMONARY & CRITICAL CARE MEDICINE [address] [facility] [address] [place] [address] 04/16/2025 1:30 PM EDT Office Visit [facility] PULMONARY & CRITICAL CARE MEDICINE [address] [facility] [address] [place] [address] Gwen Benitez, DIRECTOR OF SUSTAINABLE DESIGN [address] [place] [address] documented as of this encounter Visit Diagnoses Not on filedocumented in this encounter Care Teams Airfield Manager Relationship Specialty Start Date End Date Doni Villasenor MD [address] [place], [place] [address] PCP - General Family Medicine 02/23/19 documented as of this encounter
--- OUTSIDE RECORDS SUMMARY | 2025-03-28 11:50 | XMS_ITS | Clinical Summary ---
Author Organization [facility] Address [address] [place] [id number] Care Team Providers Care Customer Service Agent Name Role Phone Doni Villasenor MD Primary Care Provider [phone] Allergies Active Allergy Reactions Criticality Noted Date Comments Lisinopril Cough Low 07/20/2022 Metformin Rash Low 05/18/2023 Nsaids Other (See Comments) Low 11/14/2024 Heart doctor must OK this Medications fenofibrate (TRICOR) 145 MG tablet Take 1 tablet by mouth Daily. Active glimepiride (AMARYL) 4 MG tablet Take 2 tablets by mouth Every Morning Before Breakfast. Now taking two 4 mg tablets Active dutasteride (AVODART) 0.5 MG capsule Take 1 capsule by mouth Daily. Active nitroglycerin (NITROSTAT) 0.[address] 1 tablet under the tongue Every 5 (Five) Minutes As Needed for Chest Pain. Take no more than 3 doses in 15 minutes. Active allopurinol (ZYLOPRIM) 300 MG tablet Take 1 tablet by mouth Daily. Active levothyroxine (SYNTHROID, LEVOTHROID) 25 MCG tablet Take 0.5 tablets by mouth Daily. 07/05/20 Active pantoprazole (PROTONIX) 40 MG EC tablet Take 1 tablet by mouth 2 (Two) Times a Day. 07/15/20 22 Active vitamin D (ERGOCALCIFEROL ) 1.25 MG (95569 UT) capsule capsule Take 1 capsule by mouth Every 7 (Seven) Days. 06/04/20 Active tiZANidine (ZANAFLEX) 4 MG tablet Take 1 tablet by mouth Every 8 (Eight) Hours As Needed for Muscle Spasms. 11/12/19 23 Active albuterol (PROVENTIL) (2.5 MG/3ML) 0.083% nebulizer solution Take 2.5 mg by nebulization 4 (Four) Times a Day As Needed for Wheezing. 120 each 11 10/14/19 24 Active ammonium lactate (LAC-HYDRIN) 12 % lotion APPLY TO THE AFFECTED AREA ONCE DAILY 10/26/19 24 Active Jardiance 25 MG tablet tablet Take 1 tablet by mouth Daily. 12/24/19 24 Active Wal-Mucil 0.52 g capsule Take 2 capsules by mouth Every 12 (Twelve) Hours. 01/13/20 24 Active furosemide (Lasix) 20 MG tabletIndicatio ns:Swelling of lower extremity,Parox ysmal atrial fibrillation Take 1 tablet by mouth Daily. 90 tablet 3 02/09/20 24 Active Continuous Glucose Construction Site Crossing Guard (Dexcom G7 Construction Site Crossing Guard) device Daily. as directed 04/13/20 24 Active Continuous Glucose Sensor (Dexcom G7 Sensor) misc CHANGE EVERY 10 DAYS 04/11/20 24 Active tamsulosin (FLOMAX) 0.4 MG capsule 24 hr capsule Take 1 capsule by mouth Daily. Active ketoconazole (NIZORAL) 2 % cream APPLY CREAM TOPICALLY TWICE DAILY FOR FUNGAL INFECTION FOR 30 DAYS 09/28/19 25 Active Ozempic, 1 MG/DOSE, 4 MG/3ML solution pen-injector Inject 1 mg under the skin into the appropriate area as directed 1 (One) Time Per Week. 09/22/19 25 Active gabapentin (NEURONTIN) 800 MG tablet Take 1 tablet by mouth 2 (Two) Times a Day. 09/28/19 25 Active albuterol sulfate HFA 108 (90 Base) MCG/ACT inhaler Inhale 1 puff Every 4 (Four) Hours As Needed for Wheezing or Shortness of Air. 8 g 5 10/04/19 25 Active Trelegy Ellipta 200-62.5-25 MCG/ACT inhalerIndicati ons:COPD mixed type Inhale 1 puff Daily. 180 each 3 10/16/19 25 Active dilTIAZem (Tiadylt ER) 120 MG 24 hr capsule Take 1 capsule by mouth Daily. 30 capsule 6 10/19/19 25 Active naproxen (NAPROSYN) 250 MG tablet Take 1 tablet by mouth 2 (Two) Times a Day As Needed for Mild Pain. 20 tablet 11/02/19 25 Active Additional Information Patient not taking.Reported on 01/01/2025 lamoTRIgine (LaMICtal) 25 MG tablet TAKE 1 TABLET (25MG) BY MOUTH ONCE DAILY FOR 2 WEEKS, THEN 1 TABLET (25MG) TWICE DAILY FOR 2 WEEKS, THEN 2 (50MG) TABLETS IN THE MORNING AND 1 TABLET (25MG) IN THE EVENING FOR 2 WEEKS, THEN 1 TABLET (50MG) TWICE DAILY THEREAFTER Active rivaroxaban (Xarelto) 20 MG tabletIndicatio ns:Paroxysmal atrial fibrillation Take 1 tablet by mouth once daily 90 tablet 1 01/02/20 25 Active atorvastatin (LIPITOR) 40 MG tablet Take 1 tablet by mouth Daily. 90 tablet 3 01/06/20 25 Active metoprolol succinate XL (TOPROL-XL) 25 MG 24 hr tabletIndicatio ns:Chronic fatigue,Paroxys mal atrial fibrillation,Pr imary hypertension Take 1 tablet by mouth Daily. 180 tablet 3 01/10/20 25 Active MAGnesium-Oxide 400 (240 Mg) MG tabletIndicatio ns:Swelling of lower extremity,Parox ysmal atrial fibrillation Take 1 tablet by mouth once daily 40 tablet 03/19/20 25 Active MAGnesium-Oxide 400 (240 Mg) MG tabletIndicatio ns:Swelling of lower extremity,Parox ysmal atrial fibrillation Take 1 tablet by mouth once daily 40 tablet 02/01/20 25 2024 Discontinued Active Problems Problem Noted Date Diagnosed Date Complete heart block 01/02/2025 Hospital discharge follow-up 12/05/2024 Assessment & Plan (12/05/2024 3:12 PM EDT): Patient initially presented to [facility] on 11/29/2024 with possible stroke. He had difficulty speaking but any acute stroke was ruled out at that time. He was transferred to [facility] due to [facility] being on divert. [facility] records have been requested multiple times but are unavailable at this time. He reports that a stroke was ruled out there as well and he was told that he possibly has Alzheimer's disease. He completed an echocardiogram and carotid testing at [facility] but both are unavailable for review at this time. He denies any current symptoms today. We will review records from [facility] and determine if further testing is needed at that time. He completed a CTA of head and neck at [facility] on 11/29/2024 that revealed an unremarkable [...] Delayed emergence from anesthesia Current use of residential anticoagulation 022 Paroxysmal atrial fibrillation 07/20/2022 Overview [...] (coronary artery disease) 05/14/2021 Overview (09/01/2023): 05/2019 [facility] with single-vessel borderline circumflex disease, 40% RCA. LAD angioplasty site patent. [facility], 10/01/2022: 60% OM1 with normal IFR 0.94, 50% first diagonal normal IFR 0.96. Otherwise no significant coronary disease Assessment & Plan (12/05/2024 3:14 PM EDT): 05/2019 [facility] with single-vessel borderline circumflex disease, 40% RCA. LAD angioplasty site patent. [facility], 10/01/2022: 60% OM1 with normal IFR 0.94, [...] Panel; Future Type 2 diabetes mellitus 05/14/2021 Resolved Problems Problem Noted Date Diagnosed Date [...] pain 07/21/2022 08/31/2023 Pericardial effusion 07/21/2022 023 halfway current use of antiarrhythmic drug 12/20/2023 Assessment & Plan (12/02/2022 8:31 AM EDT): EKG updated for QT interval monitoring on new medication. QT is acceptable range. Assessment & Plan (11/02/2022 7:26 PM EST): Sotalol. QT okay today. Had previously been on amiodarone. Hyperkalemia 05/14/2021 05/14/2021 Elevated serum creatinine 05/14/2021 Hypoglycemia 05/14/2021 05/14/2021 Episode of unresponsiveness 05/13/2021 08/31/2023 Acute pancreatitis 05/02/2015 Acute posthemorrhagic anemia 05/02/2015 08/31/2023 Cholelithiasis 05/02/2015 07/03/2024 Acute cholecystitis 05/02/2015 08/31/20 Chronic cholecystitis 05/02/20152023 Hypoalbuminemia 05/02/2015 08/31/2023 Hypocalcemia 05/02/2015 08/31/2023 Hypomagnesemia 05/02/2015 08/31/2023 Leukocytosis 05/02/2015 08/31/2023 Encounters Date Type Department Care Team Description 2025 Results Follow-Up [facility] [place] [address] Marina Langley MD 03/19/2025 Refill [facility] [place] [address] Karmen Khan APRN Med Refill 01/31/2025 Refill [facility] [address] [place] [address] Marina Langley MD Med Refill 01/09/2025 Refill [facility] [address] [place] [address] Marina Langley MD Med Refill 01/05/2025 Refill [facility] [address] [place] [address] Marina Langley MD Med Refill 01/01/2025 2:30 PM EDT Office Visit [facility] [address] [place] [address] [address] [place] [address] Theodore Reynaga DO AF (paroxysmal atrial fibrillation) (Primary Dx); Essential hypertension; BINH (obstructive sleep apnea); Paroxysmal atrial fibrillation; Sinus node dysfunction; Current use of residential anticoagulation; Pacemaker; Complete heart block 01/01/2025 Travel 12/30/2024 Refill [facility] [address] [place] [address] Marina Langley MD Med Refill from Last 3 Months Immunizations Immunization Administration Dates Next Due Fluad Quad 65+ 05/27/2022,07/09/2021,10/02/2020 Fluzone (or Fluarix & Flulav al for VFC) >6mos 05/19/2017,04/28/2016 Influenza Seasonal Injectable 06/06/2015 Pneumococcal Conjugate 20-Valent (PCV20) 022 Pneumococcal Polysaccharide (PPSV23) 05/19/2017 Family History Medical History Relation Name Comments Heart disease Father Breast cancer Mother Liver cancer Mother Relation Name Status Comments Brother 1 Alive Brother 2 Alive Brother 3 Alive Brother 4 Alive Father (Age 66) Mother (Age 37) Sister 1 Alive Sister 2 Alive Sister 3 Alive Sister 4 Social History Tobacco Use Types Packs/Day Years Used Date Smoking Tobacco: Former Cigarettes 1 40 1 962 - 2002 Passive Smoke Exposure: Past Smokeless Tobacco: Never Tobacco Cessation:Counseling Given: No Alcohol Use Standard Drinks/Week Comments Not Currently [...] or training? Not on file Preferred Language Armenian 09/10/2023 Sex and Gender Information Value Date Recorded Sex Assigned at Not on file Legal Sex Male 10:52 AM EDT Gender Identity Not on file Sexual Orientation Not on file Occupation Industry Job Start Date Job End Date DISABLED Not on file Not on file Not on file Last Filed Vital Signs Vital Sign Reading Time Taken Comments Blood Pressure 110/60 01/01/2025 2:57 PM EDT Pulse 67 01/01/2025 2:57 PM EDT Temperature 36.7 C (98.1 F) 10/16/2024 1:26 PM EST Respiratory Rate 18 12/13/2023 12:11 PM EDT Oxygen Saturation 96% 01/01/2025 2:57 PM EDT Inhaled Oxygen Concentration - - Weight 82.6 kg (182 lb 3.2 oz) 01/01/2025 2:57 P M EDT Height 170.2 cm (5' 7 ) 01/01/2025 2:57 PM EDT Body Mass Index 28.54 01/01/2025 2:57 PM EDT Plan of Treatment Upcoming Encounters Date Type Department Care Team (Late st Contact Info) Description 04/04/2025 12:30 PM EDT Clinical Support No Requirements [facility] [address] [place] [address] 04/04/2025 12:45 PM EDT Office Visit [facility] [address] [place] [address] Marina Langley MD [address] [place] [address] 04/16/2025 1:15 PM EDT Registration [facility] [address] [facility] [address] [place] [id number] 04/16/2025 1:30 PM EDT Office Visit [facility] [address] [facility] [address] [place] [phone] Gwen Benitez, DIE ASSEMBLER [address] [place] [address] Health Maintenance Due Date Last Done Comments DIABETIC EYE EXAM 1963 DIABETIC FOOT EXAM 1963 URINE MICROALBUMIN-CREATININ E RATIO (uACR) 1963 TDAP/TD VACCINES (1 - Tdap) 1972 COLOGUARD 1998 COLON CANCER SCREENING 5 YEA R SIGMOIDOSCOPY 1998 CT COLONOGRAPHY 1998 FECAL OCCULT BLOOD TEST 1998 FIT Testing (1 year) 1998 ZOSTER VACCINE (1 of 2) 2003 AAA SCREEN ONCE 2018 ANNUAL WELLNESS VISIT 03/16/2019 HEPATITIS C SCREENING 03/16/2019 COVID-19 Vaccine (2023-10 5 season) 2024 06/05/2022, 03/06/2022, 07/09/2021, Additional history exists HEMOGLOBIN A1C 04/02/2025 10/03/2024, 09/07, 10/01/2022, Additional history exists INFLUENZA VACCINE 06/06/2025 05/27/2022, , 10/02/2020, Additional history exists LIPID PANEL 10/03/2025 10/03/2024, 09/07, 05/14/2021 COLONOSCOPY 09/06/2031 09/06/2021 COLORECTAL CANCER SCREENING 09/06/2031 Pneumococcal Vaccine 50+ Completed 05/27/2022, 05/07 Medical Devices Implanted Type Area Retail Area Manager Device Identifier Shelf Expiration Date Model / Serial / Lot Pacemaker-2021 Implanted:03/03 (Quantity not on file) Pacemaker Procedures Procedure Name Priority Date/Time Associated Diagnosis Comments SCANNED - LABS 03/23/2025 SCANNED - LABS 03/23/2025 SCANNED - LABS 03/23/2025 SCANNED - LABS 03/23/2025 SCANNED - LABS 03/23/2025 SCANNED - IMAGING 03/23/2025 SCANNED - IMAGING 03/23/2025 REMOTE DEVICE CHECK 03/07/2025 4 :24 AM EDT HEMOGLOBIN A1C Routine 10/03/2024 DM (diabetes mellitus), type 2 with peripheral vascular complications Pure hypercholesterolemia Chronic fatigue Primary hypertension Coronary artery disease involving robinson coronary artery of robinson heart, unspecified whether angina present LIPID PANEL Routine 10/03/2024 DM (diabetes mellitus), type 2 with peripheral vascular complications Pure hypercholesterolemia Chronic fatigue Primary hypertension Coronary artery disease involving robinson coronary artery of robinson heart, unspecified whether angina present from Last 3 Months or Most Recently Relevant to Health Maintenance Results * IMAGING SCANNED (03/23/2025) Only the most recent of2 resultswithin the time period is included. Anatomical Region Laterality Modality Radiographic Angela ging us Marina Langley MD IMG DIAGNOSTIC IMAGING ORDER ROSELIA Final Result * LABS SCANNED (03/23/2025) Only the most recent of5 resultswithin the time period is included. us Marina Langley MD LAB BLOOD ORDERABLES Final R esult * Hemoglobin A1c (10/03/2024) Blood us Marina Langley MD LAB BLOOD ORDERABLES Final R esult [facility]
[address] [place] [address], [place] [phone] * Lipid Panel (10/03/2024) Blood us Marina Langley MD LAB BLOOD ORDERABLES Final R esult [facility]
[address] [place] [address], [place] [phone] from Last 3 Months or Most Recently Relevant to Health Maintenance Insurance [place] [address] MEDICARE ADVANTAGE [facility] HMO Advance Directives * CPR (Attempt to Resuscitate) (Latest Code Status on File) Date Activated Date Inactivated Comments 09/17/2023 3:16 PM 09/17/2023 7:38 PM Question Answer Comments Code Status (Patient has no pulse and is not breathing): CPR (Attempt to Resuscitate) Medical Interventions (Patie nt has pulse or is breathing): Full Support Level Of Support Discussed With: Patient * CPR (Attempt to Resuscitate) Date Activated Date Inactivated Comments 05/13/2021 5:53 PM 05/14/2021 4:42 PM Question Answer Comments Code Status (Patient has no pulse and is not breathing): CPR (Attempt to Resuscitate) Medical Interventions (Patie nt has pulse or is breathing): Full Comments: daughter at bedside Level Of Support Discussed With: Next of Kin (If No Surrogate) Care Teams Customer Service Agent Relationship Specialty Start Date End Date Doni Villasenor MD [address] [place] [address] PCP - General Family Medicine 02/23/19
== END 2025-03-28 23:59 | disposition home or self-care (01) ==
LOC: RAD 11:48
PROVIDERS: PCP Family Medicine; Visit Provider Nurse Practitioner
DX: M19.072 Primary osteoarthritis, left ankle and foot (principal); M19.071 Primary osteoarthritis, right ankle and foot
CPT/HCPCS: 73630